=== PATIENT | male | born 1990 | race Caucasian/White ===

== ENCOUNTER 2016-11-27 09:01 | Emergency (ER) | payer BC ==
[2016-11-27] MEDS ORDERED: Mupirocin Oint 22 GM Tube TOP ONE (09:32)
--- NOTE | 2016-11-27 09:38 | EDM.PDOC ---
ED HPI GENERAL MEDICAL PROBLEM - General Chief Complaint: Skin Complaint Stated Complaint: LEFT LEG, CELLULITIS Time Seen by Provider: 11/27/16 09:31 Source of Information: Reports: Patient History Limitations: Reports: No Limitations - History of Present Illness INITIAL COMMENTS - FREE TEXT/NARRATIVE: 25 yo white male c/o left leg infected bug bite x ONE DAY Onset Date: 11/26/16 Onset Time: 12:00 Duration: Day(s): Location: Reports: Lower Extremity, Left (over calf) Quality: Reports: Ache Severity: Moderate Improves with: Reports: None Worsens with: Reports: None Context: Reports: Other (bug bite) Associated Symptoms: Reports: No Other Symptoms Left Lower Leg Pain Score (Numeric/FACES): 5 - Related Data Allergies Allergy/AdvReac Type Severity Reaction Status Date / Time No Known Allergies Allergy Verified 11/27/16 09:08 Home Meds: Home Meds . [No Known Home Meds] 11/27/16 [History] Past Medical History - Past Health History Medical/Surgical History: Denies Medical/Surgical History HEENT History: Reports: Impaired Vision Endocrine/Metabolic History: Reports: Obesity/BMI 30+ Social & Family History - Family History Family Medical History: Noncontributory - Tobacco Use Smoking Status *Q: Never Smoker - Caffeine Use Caffeine Use: Reports: None - Recreational Drug Use Recreational Drug Use: No ED ROS GENERAL - Review of Systems Review Of Systems: See Below Constitutional: Reports: No Symptoms HEENT: Reports: No Symptoms Respiratory: Reports: No Symptoms Cardiovascular: Reports: No Symptoms Endocrine: Reports: No Symptoms GI/Abdominal: Reports: No Symptoms : Reports: No Symptoms Musculoskeletal: Reports: Leg Pain (left calf area) Skin: Reports: Erythema (left calf area) Neurological: Reports: No Symptoms Psychiatric: Reports: No Symptoms Hematologic/Lymphatic: Reports: No Symptoms Immunologic: Reports: No Symptoms ED EXAM, SKIN/RASH Exam: See Below Exam Limited By: No Limitations General Appearance: Alert, No Apparent Distress, Obese Eye Exam: Bilateral Eye: EOMI, PERRL Ears: Normal External Exam Nose: Normal Inspection Throat/Mouth: Normal Inspection Head: Atraumatic Neck: Normal Inspection Respiratory/Chest: No Respiratory Distress, Lungs Clear Cardiovascular: Normal Peripheral Pulses, Regular Rate, Rhythm Peripheral Pulses: 2+: Dorsalis Pedis (L), Dorsalis Pedis (R) GI/Abdominal: Normal Bowel Sounds Back Exam: Normal Inspection Extremities: Normal Inspection Neurological: Alert, Oriented, CN II-XII Intact Psychiatric: Normal Affect Skin: Erythema Location, Skin: Lower Extremity, Left Characteristics: Macular, Erythematous Associated features: Warmth, Tenderness Lymphatic: No Adenopathy Course - Vital Signs Last Recorded V/S: Last Vital Signs Temp 36.6 C 11/27/16 09:09 Pulse 100 11/27/16 09:09 Resp 18 11/27/16 09:09 BP 137/79 11/27/16 09:09 Pulse Ox 100 11/27/16 09:09 Departure - Departure Time of Disposition: 09:38 Disposition: Home, Self-Care 01 Condition: Good Clinical Impression: Cellulitis Qualifiers: Site of cellulitis: extremity Site of cellulitis of extremity: lower extremity Laterality: left Qualified Code(s): L03.116 - Cellulitis of left lower limb - Discharge Information Additional Instructions: Keep area clean and dry Take the Oral Antibiotic as prescribed and complete: KEFLEX 500mg QID # 40 Apply Topical Antibiotic Daily: BACTROBAN OINT. # 22g Elevate and apply ice pack to area TID X 15 mins. F/U w/ PCP on TUESDAY November 29, 2016 for re-check
== END 2016-11-27 09:47 | disposition home or self-care (01) ==
LOC: DL.ED 09:01
DX: L03.116 Cellulitis of left lower limb (principal); W57.XXXA Bitten or stung by nonvenomous insect and other nonvenomous arthropods, initial encounter
CPT/HCPCS: 99283; A9270

== ENCOUNTER 2021-01-25 08:46 | Emergency (ER) | payer SELFPAY ==
--- NOTE | 2021-01-25 09:13 | EDM.PDOC ---
ED HPI GENERAL MEDICAL PROBLEM - General Chief Complaint: ENT Problem Stated Complaint: COUGHING UP GREEN & BLOOD Time Seen by Provider: 01/25/21 09:06 Source of Information: Reports: Patient History Limitations: Reports: No Limitations - History of Present Illness INITIAL COMMENTS - FREE TEXT/NARRATIVE: 30 y/o M c/o cough congestion for four days. Pt has had a couple episodes where he cough so hard his sputum was blood tinged. Has been using OTC tylenol and Aleve which have helped his symptoms. He denies fever, chills, sob, cp, abd pn, trauma, ext pain, drugs, etoh. - Related Data Allergies Allergy/AdvReac Type Severity Reaction Status Date / Time No Known Allergies Allergy Verified 01/25/21 09:03 Home Meds: Home Meds . [No Known Home Meds] 11/27/16 [History] Past Medical History - Past Health History Medical/Surgical History: Denies Medical/Surgical History HEENT History: Reports: Impaired Vision Endocrine/Metabolic History: Reports: Obesity/BMI 30+ Social & Family History - Family History Family Medical History: No Pertinent Family History - Caffeine Use Caffeine Use: Reports: None ED ROS ENT - Review of Systems Review Of Systems: Comprehensive ROS is negative, except as noted in HPI. ED EXAM, ENT - Physical Exam Exam: See Below Exam Limited By: No Limitations General Appearance: Alert, No Apparent Distress Eye Exam: Bilateral Eye: PERRL Ears: Normal External Exam, Normal Canal, Hearing Grossly Normal, Normal TMs Nose: Nasal Discharge, Nasal Swelling Mouth/Throat: Other (poor dentition, no oral trauma, significant tooth decay, no tonsillar swelling or exudate) Head: Atraumatic, Normocephalic Neck: Supple, Non-Tender (no lymphadenopathy) Respiratory/Chest: No Respiratory Distress, Lungs Clear, Normal Breath Sounds, No Accessory Muscle Use, Chest Non-Tender Cardiovascular: Normal Peripheral Pulses, Regular Rate, Rhythm, No Edema, No Gallop, No JVD, No Murmur, No Rub GI/Abdominal: Soft, Non-Tender (Male) Exam: Deferred Rectal (Males) Exam: Deferred Back: Normal Inspection, Full Range of Motion Extremities: Normal Inspection, Normal Range of Motion, Non-Tender, No Pedal Edema, Normal Capillary Refill Neurological: Alert Psychiatric: Normal Affect, Normal Mood Skin: Warm, Intact Course - Vital Signs Last Recorded V/S: Last Vital Signs Temp 97.3 F 01/25/21 09:03 Pulse 88 01/25/21 09:03 Resp 18 01/25/21 09:03 BP 153/86 H 01/25/21 09:03 Pulse Ox 96 01/25/21 09:03 Departure - Departure Time of Disposition: :10 Disposition: Home, Self-Care 01 Condition: Good Clinical Impression: URI (upper respiratory infection) Qualifiers: URI type: unspecified viral URI Qualified Code(s): J06.9 - Acute upper respiratory infection, unspecified - Discharge Information *PRESCRIPTION DRUG MONITORING PROGRAM REVIEWED*: Not Applicable *COPY OF PRESCRIPTION DRUG MONITORING REPORT IN PATIENT SHEY: Not Applicable Instructions: Upper Respiratory Infection, Adult, [id number] Additional Instructions: Continue to use your OTC meds for your symptoms. Drink plenty of fluids to maintain hydration. Follow up with with your primary care facility if your symptoms do not improve in 2 weeks. If any new symptoms or concerns develop contact your primary care facility or return to the ER. Sepsis Event Note (ED) - Evaluation Sepsis Screening Result: No Definite Risk - Focused Exam Vital Signs: Vital Signs Temp Pulse Resp BP Pulse Ox 01/25/21 09:03 97.3 F 88 18 153/86 H 96
== END 2021-01-25 09:27 | disposition home or self-care (01) ==
LOC: DL.ED 08:46
DX: J06.9 Acute upper respiratory infection, unspecified (principal)
CPT/HCPCS: 99283

== ENCOUNTER 2022-09-08 13:18 | Emergency (ER) | payer SELFPAY | END 2022-09-08 15:03 | disposition home or self-care (01) | LOC: DL.ED 13:18 | DX: Z77.098 Contact with and (suspected) exposure to other hazardous, chiefly nonmedicinal, chemicals (principal); R00.0 Tachycardia, unspecified; E66.9 Obesity, unspecified; Z88.0 Allergy status to penicillin | CPT/HCPCS: 71046; 93005; 93010; 99283; 99285 ==

== ENCOUNTER 2022-12-20 10:43 | Day surgery (SDC) | payer OTHER ==
[~2022-12-20 10:43] MED LIST: Glucagon,Human Recombinant 1 MG Vial IVPUSH ONE; Glucagon,Human Recombinant 1 MG Vial ONE; Sodium Chloride 0.9% 10 ML Syringe FLUSH PRN
[2022-12-20] MEDS ORDERED: Dextrose 5%-0.45% NaCl 1,000 ML IV SCH (10:45)
[2022-12-20] MEDS ORDERED: Sodium Chloride 0.9% 10 ML Syringe FLUSH SCH (21:00)
== END 2022-12-20 14:35 | disposition home or self-care (01) ==
LOC: DL.SDS 10:43
PROVIDERS: ATTEND Internal Medicine Gastroenterology
DX: T18.128A Food in esophagus causing other injury, initial encounter (principal); K29.50 Unspecified chronic gastritis without bleeding; R13.10 Dysphagia, unspecified; K20.90 Esophagitis, unspecified without bleeding; F90.9 Attention-deficit hyperactivity disorder, unspecified type; E66.01 Morbid (severe) obesity due to excess calories; Z68.43 Body mass index [BMI] 50.0-59.9, adult; Z88.1 Allergy status to other antibiotic agents; Z88.0 Allergy status to penicillin
CPT/HCPCS: 00731; 87077; J1610; J3490; J7042

== ENCOUNTER 2024-01-11 06:02 | Day surgery (SDC) | payer BC, OTHER ==
[2024-01-11] MEDS: Dextrose 5%-0.45% NaCl 1,000 ML IV SCH (06:21)
[2024-01-11] MEDS ORDERED: Midazolam 1 MG/ML 2 ML SDV IVPUSH ONE (06:33)
[2024-01-11] MEDS ORDERED: fentaNYL 100 MCG/2 ML SDV IVPUSH ONE ×2 (06:34→06:51)
[2024-01-11] MEDS: fentaNYL 100 MCG/2 ML SDV IV ONE ×2 (06:47→06:48)
[2024-01-11] MEDS: Midazolam 1 MG/ML 2 ML SDV IV ONE ×2 (06:49)
[2024-01-11] MEDS ORDERED: Naloxone 2 MG/2 ML Syringe IVPUSH PRN (06:51)
== END 2024-01-11 08:46 | disposition home or self-care (01) ==
LOC: DL.ENDO 06:02
PROVIDERS: ATTEND Internal Medicine Gastroenterology
DX: K20.0 Eosinophilic esophagitis (principal)
CPT/HCPCS: J2250; J3010; J7799